=== PATIENT | female | born 1945 | race Caucasian/White ===

== ENCOUNTER 2017-09-25 20:52 | Inpatient (IN) | payer MEDICARE ==
[~2017-09-25] VITALS: Ht 162.6 cm; Wt 90.9 kg
[2017-09-25 22:08] LABS: BASOPHIL % 0.6 % (0-2); PLATELET COUNT 226 x10^3mcL (130-400); RED CELL DISTRIBUTION WIDTH 14.5 % (11.5-14.5)
[2017-09-25 22:20] LABS: CALCIUM 8.3 mg/dL (8.5-10.1); CARBON DIOXIDE 29.1 mmol/L (21-32); CHLORIDE SERUM 102 mmol/L (98-107); GLUCOSE SERUM 179 mg/dL (74-106); POTASSIUM SERUM 3.8 mmol/L (3.5-5.1); SODIUM SERUM 139 mmol/L (136-145)
[2017-09-25 22:24] LABS: ALBUMIN 3.7 g/dL (3.4-5.0); ALKALINE PHOSPHATASE 92 U/L (46-116); ALT/SGPT 36 U/L (14-59); AST/SGOT 18 U/L (15-37); BILIRUBIN TOTAL 0.4 mg/dL (0.20-1.00); CHOLESTEROL 136 mg/dL (<200); HDL CHOLESTEROL 44 mg/dL (40-60); MAGNESIUM 1.6 mg/dL (1.8-2.4); PHOSPHOROUS 3.5 mg/dL (2.5-4.9); TOTAL PROTEIN, SERUM 6.9 g/dL (6.4-8.2)
[2017-09-25 22:39] LABS: T3 TOTAL 0.97 ng/mL
[2017-09-25 22:54] LABS: FREE T4 1.18 ng/dL (0.76-1.46); FREE THYROXINE INDEX 3.3 ug/dL (1.4-4.5); T4(THYROXINE) 9.5 ug/dL (4.7-13.3)
[2017-09-25 23:24] LABS: UA SPECIFIC GRAVITY 1.025 (1.005-1.035); microscopic required? YES; urine erythrocyte NEGATIVE (NEGATIVE)
[2017-09-25] MEDS ORDERED: ATENOLOL25 MG PO (23:33)
[2017-09-25] MEDS ORDERED: METFORMIN HCL1000 MG PO (23:35)
[2017-09-25] MEDS ORDERED: HCTZ/LISINOPRIL1 TAB PO (23:35)
[2017-09-25] MEDS ORDERED: LEVO-T75 MCG PO (23:36)
[2017-09-25] MEDS ORDERED: SIMVASTATIN40 M1 PO (23:36)
[2017-09-26 00:01] VITALS: BP 153/78
[2017-09-26 05:31] VITALS: BP 141/62
[2017-09-26 06:31] LABS: CALCIUM 8.9 mg/dL (8.5-10.1); CARBON DIOXIDE 30.1 mmol/L (21-32); CHLORIDE SERUM 105 mmol/L (98-107); CREATININE SERUM 0.9 mg/dL (0.6-1.0); GLUCOSE SERUM 118 mg/dL (74-106); MAGNESIUM 2.2 mg/dL (1.8-2.4); PHOSPHOROUS 3.6 mg/dL (2.5-4.9); POTASSIUM SERUM 4.3 mmol/L (3.5-5.1); SODIUM SERUM 142 mmol/L (136-145)
[2017-09-26 06:41] LABS: CHOLESTEROL/HDL RATIO 2.7
[2017-09-26 08:40] VITALS: BP 154/66
[2017-09-26 13:26] VITALS: BP 144/55
[2017-09-26 17:00] VITALS: BP 153/72
[2017-09-26 20:50] VITALS: BP 132/69; BP 162/69
[2017-09-26 21:54] VITALS: Ht 162.6 cm; Wt 90.9 kg
[2017-09-27 05:30] VITALS: BP 145/62
[2017-09-27 06:53] LABS: BASOPHIL % 0.3 % (0-2); PLATELET COUNT 223 x10^3mcL (130-400)
[2017-09-27 07:19] LABS: RED CELL DISTRIBUTION WIDTH 14.6 % (11.5-14.5)
[2017-09-27 09:03] VITALS: BP 180/74
[2017-09-27 13:48] VITALS: BP 127/47
[2017-09-27 16:01] VITALS: BP 127/47
== END 2017-09-27 16:30 | disposition home or self-care (01) | DRG 690 ==
LOC: ED 20:52 → DU 23:25
PROVIDERS: Emergency Medicine; Internal Medicine
DX: N39.0 Urinary tract infection, site not specified (principal); R47.81 Slurred speech; E11.9 Type 2 diabetes mellitus without complications; E05.90 Thyrotoxicosis, unspecified without thyrotoxic crisis or storm; I48.91 Unspecified atrial fibrillation; I10 Essential (primary) hypertension; E03.9 Hypothyroidism, unspecified
CPT/HCPCS: 84439; J3475; J7030; J7050; Q0092